=== PATIENT | female | born 1980 | race Caucasian/White ===

== ENCOUNTER 2018-11-01 16:51 | Emergency (ER) | payer OTHER ==
[~2018-11-01] VITALS: Ht 157.5 cm; Wt 61.7 kg
[~2018-11-01 16:51] MED LIST: MACROBID100 MG PO; PRENATAL VITAMI1 TA4 PO
[2018-11-01 17:00] VITALS: BP 126/75; Ht 157.5 cm; Wt 61.7 kg
[2018-11-01 18:43] LABS: BASOPHIL % 0.5 % (0-2); PLATELET COUNT 362 x10^3mcL (130-400); RED CELL DISTRIBUTION WIDTH 12.8 % (11.5-14.5)
[2018-11-01 18:55] LABS: CALCIUM 8.9 mg/dL (8.5-10.1); CARBON DIOXIDE 28.5 mmol/L (21-32); CHLORIDE SERUM 98 mmol/L (98-107); CREATININE SERUM 0.6 mg/dL (0.6-1.0); GFR1 > 60 mL/min; GLUCOSE SERUM 99 mg/dL (74-106); SODIUM SERUM 134 mmol/L (136-145)
[2018-11-01 19:05] LABS: ALBUMIN 3.8 g/dL (3.4-5.0); ALKALINE PHOSPHATASE 81 U/L (46-116); ALT/SGPT 19 U/L (14-59); AST/SGOT 16 U/L (15-37); BILIRUBIN TOTAL 0.3 mg/dL (0.20-1.00); TOTAL PROTEIN, SERUM 7.9 g/dL (6.4-8.2)
== END 2018-11-01 19:29 | disposition home or self-care (01) ==
LOC: ED 16:51
PROVIDERS: Emergency Medicine
DX: N93.8 Other specified abnormal uterine and vaginal bleeding (principal); R06.02 Shortness of breath; Z90.89 Acquired absence of other organs
CPT/HCPCS: 36415

== ENCOUNTER 2018-12-20 13:58 | Emergency (ER) | payer OTHER ==
[~2018-12-20] VITALS: Ht 157.5 cm; Wt 60.3 kg
[2018-12-20 14:05] VITALS: Ht 157.5 cm; Wt 60.3 kg
[2018-12-20 16:54] VITALS: BP 115/67
== END 2018-12-20 16:54 | disposition home or self-care (01) ==
LOC: ED 13:58
DX: B34.9 Viral infection, unspecified (principal); Z90.89 Acquired absence of other organs
CPT/HCPCS: J7030